=== PATIENT | female | born 1955 | race Caucasian/White ===

== ENCOUNTER 2019-10-02 06:45 | Day surgery (SDC) | payer BC ==
[~2019-10-02] VITALS: Ht 170.2 cm; Wt 70.4 kg
[~2019-10-02 06:45] MED LIST: ALBU90OI INH; ALLEGRA ALLERG180 MG PO; MONT10T PO; OMEP20ER PO
--- NOTE | 2019-10-02 07:30 | NUR ---
10/02/19 0730 Maryjo Ulrich 1 TRY RIGHT HAND VEIN BLEW VALVEY HANDS
== END 2019-10-02 09:04 | disposition home or self-care (01) ==
LOC: ORSCSDS 06:45
PROVIDERS: Internal Medicine Gastroenterology
PROC: 0DJD8ZZ Inspection of Lower Intestinal Tract, Via Natural or Artificial Opening Endoscopic (ICD-10-PCS; principal; 2019-10-02 08:00)
DX: R19.4 Change in bowel habit (principal); K64.8 Other hemorrhoids; K21.9 Gastro-esophageal reflux disease without esophagitis; J45.909 Unspecified asthma, uncomplicated; Z79.899 Other long term (current) drug therapy
CPT/HCPCS: J0330; J0461; J2405; J2704; J7120

== ENCOUNTER 2021-01-27 08:18 | Day surgery (SDC) | payer MEDICARE, BC ==
[~2021-01-27] VITALS: Ht 170.2 cm; Wt 71.4 kg
[~2021-01-27 08:18] MED LIST changes: +HYDHCL25 PO
--- NOTE | 2021-01-27 08:49 | NUR ---
01/27/21 0849 Ameya crouch FIRST IV IN RIGHT HAND BLEW SECOND IV IN RIGHT HAND WORKED
== END 2021-01-27 10:12 | disposition home or self-care (01) ==
LOC: ORSCSDS 08:18
PROVIDERS: Internal Medicine Gastroenterology
PROC: 0DJ08ZZ Inspection of Upper Intestinal Tract, Via Natural or Artificial Opening Endoscopic (ICD-10-PCS; principal; 2021-01-27 09:45)
DX: K21.9 Gastro-esophageal reflux disease without esophagitis (principal); K44.9 Diaphragmatic hernia without obstruction or gangrene; J45.909 Unspecified asthma, uncomplicated; Z79.899 Other long term (current) drug therapy
CPT/HCPCS: J2704; J7120

== ENCOUNTER → 2021-06-09 | Outpatient (CLI) | payer OTHER ==
[2021-06-10 09:51] LABS: Candida species (DNA Probe) Negative (NEGATIVE); G. vaginalis (DNA Probe) Negative (NEGATIVE); T. vaginalis (DNA Probe) Negative (NEGATIVE)
== END | disposition home or self-care (01) ==
LOC: LAB SHORT 17:00
PROVIDERS: Family Medicine
DX: N76.0 Acute vaginitis (principal)
CPT/HCPCS: 87480; 87510; 87660

== ENCOUNTER → 2023-11-22 | Outpatient (CLI) | payer MEDICARE, BC ==
[2023-11-22 20:46] LABS: Bacterial Vaginosis PCR Negative (NEGATIVE); Candida Group, PCR NOT DETECTED (NOT DETECT); Candida glabrata-krusei, PCR NOT DETECTED (NOT DETECT)
== END | disposition home or self-care (01) ==
LOC: LAB SHORT 18:32 → LAB 18:32
PROVIDERS: Family Medicine
DX: L29.3 Anogenital pruritus, unspecified (principal)
CPT/HCPCS: 87481; 87661; 87801

== ENCOUNTER → 2024-10-08 | Outpatient (CLI) | payer MEDICARE | LOC: LAB 11:41 → LAB SHORT 11:41 | DX: K21.9 Gastro-esophageal reflux disease without esophagitis (principal) | CPT/HCPCS: 87338 ==

== ENCOUNTER → 2024-11-10 | Outpatient (CLI) | payer MEDICARE ==
[2024-11-10 16:06] LABS: BASOPHILS ABSOLUTE AUTO 0.04 K/mm3 (0.00-0.23); BASOPHILS PERCENT AUTO 1 % (0-2); EOSINOPHILS ABSOLUTE AUTO 0.01 K/mm3 (0.00-0.68); EOSINOPHILS PERCENT AUTO 0 % (0-6); Hematocrit 36.3 % (33.0-51.0); Hemoglobin 12.2 g/dL (11.5-16.0); IMMATURE GRAN ABSOLUTE AUTO 0.02 K/mm3 (0.00-0.10); IMMATURE GRAN PERCENT AUTO 0 % (0-1); LYMPHOCYTES ABSOLUTE AUTO 0.92 K/mm3 (0.84-5.20); LYMPHOCYTES PERCENT AUTO 15 % (21-46); MONOCYTES ABSOLUTE AUTO 0.35 K/mm3 (0.16-1.47); MONOCYTES PERCENT AUTO 6 % (4-13); Mean Corpuscular HGB 29.3 pg (26.0-34.0); Mean Corpuscular HGB Conc 33.6 g/dL (31.5-36.5); Mean Corpuscular Volume 87 fL (80-100); Mean Platelet Volume 10.8 fL (9.1-12.4); NEUTROPHILS ABSOLUTE AUTO 4.81 K/mm3 (1.96-9.15); NEUTROPHILS PERCENT AUTO 78 % (41-73); Platelet Count 194 K/mm3 (150-400); RDW Coefficient Variation 12.7 % (11.7-14.2); RDW Standard Deviation 40.4 fL (35.1-46.3); Red Blood Cell Count 4.16 M/mm3 (3.80-5.20); White Blood Cell Count 6.15 K/mm3 (4.00-11.30)
[2024-11-10 16:27] LABS: Albumin, Blood 3.9 g/dL (3.4-5.0); Albumin/Globulin Ratio 1.3 (0.8-1.8); Bilirubin, Total 0.7 mg/dL (0.1-1.0); Bun/Creatinine Ratio 18.4 (12.0-20.0); Calcium, Blood 9.1 mg/dL (8.5-10.1); Creatinine, Blood 0.76 mg/dL (0.40-1.00); Phosphorus, Blood 3.5 mg/dL (2.5-4.9); Potassium, Blood 3.7 mmol/L (3.5-5.5); Thyroid Stimulating Hormone 1.504 uIU/mL (0.360-4.800); Total Protein, Blood 6.9 g/dL (6.4-8.2)
== END ==
LOC: LAB SHORT 16:03 → LAB 16:03
PROVIDERS: Family Medicine
DX: R00.2 Palpitations (principal)
CPT/HCPCS: 80053; 84100; 84443; 84484; 85025